=== PATIENT | female | born 1940 | race Caucasian/White ===

== ENCOUNTER 2024-03-09 10:33 | Outpatient (AMB) | payer MEDICARE, OTHER, SELFPAY ==
--- NOTE | 2024-03-09 10:37 | A.OFFPC_ITS ---
Vital Signs 03/09/24 10:41 Height 5 ft Weight 117 lb BMI 22.8 BP 142/60 H Blood Pressure Location Lt brachial Position Sitting Respiration 13 Pulse 88 Pulse Source Pulse Oximeter Pulse Oximetry (%) 99 Oxygen Delivery Method Room Air Intake Visit Reasons: [facility] from [facility] Intake Note: Patient is here to establish care with [facility]. Fibre Composite Technician Required: No Accompanied by: Self / Same As Patient Allergies sulfamethoxazole [From Bactrim] Allergy (Severe, Verified 03/09/24 10:58) Agitated trimethoprim [From Bactrim] Allergy (Severe, Verified 03/09/24 10:58) Agitated Medication List - Last Reconciled 03/09/24 by Magdalena Bryant MD ascorbate calcium (vitamin C) 500 mg PO DAILY aspirin 325 mg PO BID calcium carbonate-vitamin D3 600 mg-10 mcg (400 unit) 1 tab PO BID hydrochlorothiazide 12.5 mg PO DAILY lisinopril 40 mg PO DAILY nifedipine ER 30 mg PO DAILY Tobacco use date assessed: 03/09/24 Fall risk assessment: 2 + Falls in past year Last assessed Fall Risk: 03/09/24 Dental Screening Dental Screen Date: 03/09/24 Did you have a dental visit in the last 12 months?: Yes Did you have a dental problem in the last 6 months where you did not have access to dental care?: No Was dental information given to patient?: Patient has dentist HPI HPI Comments History of Present Illness Details The patient is a 83-year-old female past medical history of hypertension, diverticulitis, low back pain, hip pain presenting for follow-up In November was having pain in the right mid abdomen lateral abdomen. She had reassuring imaging thereafter. CV: On nifedipine 30 mg daily, lisinopril 40 mg daily, HCTZ 12.5 mg daily. Has been having some intermittent non exertional chest pain, like she cant get a deep breath. Attributes it to anxiety. Denies dizziness, headaches, shortness of breath MSK: Hip, sciatica, knees. Right hip OA, severe. She underwent right hip replacement with Dr. Heath. Continues to do well. Has chronic low back and right knee pain. Diverticulosis. Up-to-date with colonoscopy. Mild stable anemia. Total abdominal hysterectomy in 1964 ROS see hpi PHYSICAL EXAM: GENERAL: Alert and oriented x 3. NAD EYES: EOMI. Anicteric. HENT: Moist mucous membranes. No scleral icterus. No cervical lymphadenopathy. LUNGS: Clear to auscultation bilaterally. CARDIOVASCULAR: Regular rate and rhythm. No murmur. No JVD. ABDOMEN: Soft, non-tender +bs EXTREMITIES: No edema. Non-tender. SKIN: No rashes or lesions. Warm. NEUROLOGIC: No focal neurological deficits. CN II-XII grossly intact PSYCHIATRIC: Cooperative. Appropriate mood and affect [facility] Medical History (Updated 03/17/24 @ 11:06 by Magdalena Bryant MD) Broken arm Right femoral fracture Greater trochanteric bursitis of right hip Vitamin B12 deficiency Tubular adenoma of colon Sciatica Piriformis syndrome of right side Allergic rhinitis Hypertension Surgical History (Updated 03/09/24 @ 10:57 by America Dominique CMA) History of appendectomy History of total hip replacement Family History (Updated 03/09/24 @ 11:08 by America Dominique CMA) Mother CHF (congestive heart failure) Cancer of ovary Coronary artery disease Father Cancer of bladder Brother Heart attack Multiple myeloma Diabetes Lupus Pancreatic cancer Sister Heart attack Multiple myeloma Diabetes Lupus Pancreatic cancer Social History (Updated 03/09/24 @ 10:54 by America Dominique CMA) Household Members: Spouse Housing: Apartment Are you a primary care worker to a significant other at home: No Do you presently have visiting nurse or other home services: No 75 years or older and lives alone: No Alcohol intake: current Alcohol intake frequency: holidays/special occasions only Alcohol type: wine Patient Tobacco Use Status: Former Tobacco user e-Cigarette/Vaping Use: Never Used service: No Current occupational status: retired Current occupational exposures/hazards: No Cognitive needs: No Hearing needs: No Vision needs: No Questionnaire PHQ-9 Over the last 2 weeks, how often have you been bothered by any of the following problems? 1. Little interest or pleasure in doing things: not at all 2. Feeling down, depressed, or hopeless: not at all 3. Trouble falling or staying asleep, or sleeping too much: not at all 4. Feeling tired or having little energy: not at all 5. Poor appetite or overeating: not at all 6. Feeling bad about yourself - or that you are a failure or have let yourself or your family down: not at all 7. Trouble concentrating on things, such as reading the newspaper or watching television: not at all 8. Moving or speaking so slowly that other people could have noticed. Or the opposite - being so fidgety or restless that you have been moving around a lot more than usual: not at all 9. Thoughts that you would be better off or of hurting yourself in some way: not at all Total score: 0 Depression Screening Interpretation: Negative Depression Screening Done: Yes 73018 - PHQ-9 Billing: Yes Source: Developed by Drs. Jorge Perez, Vickie Puri, Kiran Malagon and colleagues, with an educational ruben from [employer]. Thrive Questionnaire Date Thrive assessed: 03/09/24 I am a: Patient What is your living situation today?: I have a steady place to live Within the past 12 months, did the food you bought not last and you didn't have the money to get more?: Never true Within the past 12 months, did you worry whether your food would run out before you got money to buy more?: Never true Do you have trouble paying for medicines?: No Do you have trouble getting transportation to medical appointments?: No Do you have trouble paying your heating and electricity bill?: No Do you have trouble taking care of your child, family member or friend?: No Do you have trouble with day-to-day activities such as bathing, preparing meals, shopping, managing finances, etc.?: No Are you currently unemployed and looking for a job?: No Are you interested in more education?: No Please select the resources that you would like help with: None Currently or been in a relationship where the following occur: No concerns reported THRIVE Score: 0 AUDIT C Alcohol Use Questionnaire (AUDIT-C) 1. How often do you have a drink containing alcohol?: Monthly or less 2. How many drinks containing alcohol do you have on a typical day when you are drinking?: 1 or 2 3. How often do you have six or more drinks on one occasion?: Never Total Score: 1 AMAN-7 AMB Questionnaire AMAN-7 Date AMAN - 7 assessed: 03/09/24 Feeling nervous, anxious, or on edge: 0 = Not at all Not being able to stop or control worryin = Not at all Worrying too much about different things: 0 = Not at all Trouble relaxin = Not at all Being so restless that it is hard to sit still: 0 = Not at all Becoming easily annoyed or irritable: 0 = Not at all Feeling afraid as if something awful might happen: 0 = Not at all Total AMAN-7 score (0-4 normal; 5-9 mild; 10-14 moderate; 15-21 severe): 0 Source: Developed by Drs. Jorge Perez, Vickie Puri, Kiran Malagon and colleagues, with an educational ruben from [employer]. AMAN-7 Assessment Billing AMAN-7 Assessment Tool: AMAN-7 Assessment 47886 Physical exam (Primary Care) Vital Signs: Last Vital Signs Pulse 88 03/09/24 10:41 Resp 13 03/09/24 10:41 BP 142/60 H 03/09/24 10:41 Pulse Ox 99 03/09/24 10:41 Oxygen Delivery Method Room Air 03/09/24 10:41 BMI result Body Mass Index 22.8 Tobacco/Smoking Status: Tobacco use Status Tobacco use date assessed 03/09/24 03/09/24 10:51 Patient Tobacco Use Status Former Tobacco user 03/09/24 10:54 e-Cigarette/Vaping Use Never Used 03/09/24 10:54 PHQ-9: PHQ-9 Score PHQ-9: Total score 0 03/17/24 11:06 Depression Screening Interpretation: Negative Thrive Assessment: Date of Thrive Assessment Date Thrive assessed 03/09/24 03/09/24 10:54 Currently or been in a relationship where the following occur: No concerns reported Assessment and Plan Assessment & Plan (1) Hypertension: Code(s): I10 - Essential (primary) hypertension Qualifiers: Hypertension type: primary hypertension Qualified Code(s): I10 - Essential (primary) hypertension Plan: Stable on current medications. Continue without changes Low sodium diet. Stay active and continue healthy diet (2) Chest pain: Code(s): R07.9 - Chest pain, unspecified Qualifiers: Chest pain type: other chest pain Qualified Code(s): R07.89 - Other chest pain Plan: reassuring ekg (3) Piriformis syndrome of right side: Code(s): G57.01 - Lesion of sciatic nerve, right lower limb Orders: Orders Complete Blood Count Auto Diff 03/09/24 E53.8 - Deficiency of other specified B group vitamins, I10 - Essential (primary) hypertension, D64.9 - Anemia, unspecified, Z13.220 - Encounter for screening for lipoid disorders Comprehensive Met. Panel 03/09/24 E53.8 - Deficiency of other specified B group vitamins, I10 - Essential (primary) hypertension, D64.9 - Anemia, unspecified, Z13.220 - Encounter for screening for lipoid disorders AMB EKG-In Office 03/09/24 R06.02 - Shortness of breath Lipid Panel 03/09/24 E53.8 - Deficiency of other specified B group vitamins, I10 - Essential (primary) hypertension, D64.9 - Anemia, unspecified, Z13.220 - Encounter for screening for lipoid disorders Medications: New nifedipine ER 30 mg PO DAILY 90 tabs 3RF 90 days hydrochlorothiazide 12.5 mg PO DAILY 90 tabs 3RF 90 days lisinopril 40 mg PO DAILY 90 tabs 3RF Coding Level of Care Code Est Pt Level 4 (61587) Complex EM visit Add On G2211 Diagnoses Primary hypertension I10 Hypertension type: primary hypertension Other chest pain R07.89 Chest pain type: other chest pain Piriformis syndrome of right side G57.01 Additional Codes AMAN-7 Assessment Billing - AMAN-7 Assessment Tool: AMAN-7 Assessment [id number] ([id number])
[2024-03-09 10:41] VITALS: BP 142/60; PULSE 88; RESP 13; O2SAT 99; BMI 22.8
== END 2024-03-09 11:41 | disposition home or self-care (01) ==
PROVIDERS: PCP Internal Medicine; Visit Provider Internal Medicine
DX: I10 Essential (primary) hypertension (principal); R07.89 Other chest pain; G57.01 Lesion of sciatic nerve, right lower limb
CPT/HCPCS: 99214; G2211

== ENCOUNTER 2024-07-06 13:38 | Outpatient (AMB) | payer MEDICARE, OTHER, SELFPAY ==
--- NOTE | 2024-07-06 13:52 | A.OFFPC_ITS ---
Vital Signs 07/06/24 13:53 Height 5 ft Weight 121 lb 2 oz BMI 23.7 BP 132/58 L Blood Pressure Location Rt brachial Position Sitting Pulse 80 Pulse Source Pulse Oximeter Temp 98.1 F Temp Source Oral Pulse Oximetry (%) 98 Oxygen Delivery Method Room Air Intake Visit Reasons: Possible Sinus infection Intake Note: Sinus pressure, cough. Sxs about 9 days. Radiation Protection Engineer Required: No Allergies sulfamethoxazole [From Bactrim] Allergy (Severe, Verified 07/06/24 13:53) Agitated trimethoprim [From Bactrim] Allergy (Severe, Verified 07/06/24 13:53) Agitated Tobacco use date assessed: 03/09/24 Dental Screening Dental Screen Date: 03/09/24 HPI HPI Comments History of Present Illness Details The patient is a 83-year-old female past med ical history of hypertension, diverticulitis, low back pain, hip pain presenting for sinus congestion She reports sinus congestion, headache, teeth pain low grade temps for the past 10 days. Has tried OTC medication without relief CV: On nifedipine 30 mg daily, lisinopril 40 mg daily, HCTZ 12.5 mg daily. Has been having some intermittent non exertional chest pain, like she cant get a deep breath. Attributes it to anxiety. Denies dizziness, headaches, shortness of breath MSK: Hip, sciatica, knees. Right hip OA, severe. She underwent right hip replacement with Dr. Heath. Continues to do well. Has chronic low back and right knee pain. Diverticulosis. Up-to-date with colonoscopy. Mild stable anemia. Total abdominal hysterectomy in 1965 ROS see hpi PHYSICAL EXAM: GENERAL: Alert and oriented x 3. NAD EYES: EOMI. Anicteric. HENT: boggy nasal mucosa. maxillary sinuses ttp, erythema without exudate of the oropharynx LUNGS: Clear to auscultation bilaterally. CARDIOVASCULAR: Regular rate and rhythm. No murmur. No JVD. ABDOMEN: Soft, non-tender +bs EXTREMITIES: No edema. Non-tender. SKIN: No rashes or lesions. Warm. NEUROLOGIC: No focal neurological deficits. CN II-XII grossly intact PSYCHIATRIC: Cooperative. Appropriate mood and affect [facility] Medical History (Updated 07/06/24 @ 14:06 by Magdalena Bryant MD) Broken arm Right femoral fracture Greater trochanteric bursitis of right hip Vitamin B12 deficiency Tubular adenoma of colon Sciatica Piriformis syndrome of right side Allergic rhinitis Hypertension Surgical History (Updated 03/09/24 @ 10:57 by America Dominique CMA) History of appendectomy History of total hip replacement Family History (Updated 03/09/24 @ 11:08 by America Dominique CMA) Mother CHF (congestive heart failure) Cancer of ovary Coronary artery disease Father Cancer of bladder Brother Heart attack Multiple myeloma Diabetes Lupus Pancreatic cancer Sister Heart attack Multiple myeloma Diabetes Lupus Pancreatic cancer Social History (Updated 03/09/24 @ 10:54 by America Dominique CMA) Household Members: Spouse Housing: Apartment Are you a primary rn progressive care unit to a significant other at home: No Do you presently have visiting nurse or other home services: No 75 years or older and lives alone: No Alcohol intake: current Alcohol intake frequency: holidays/special occasions only Alcohol type: wine Patient Tobacco Use Status: Former Tobacco user e-Cigarette/Vaping Use: Never Used service: No Current occupational status: retired Current occupational exposures/hazards: No Cognitive needs: No Hearing needs: No Vision needs: No Questionnaire PHQ-9 Over the last 2 weeks, how often have you been bothered by any of the following problems? 1. Little interest or pleasure in doing things: not at all 2. Feeling down, depressed, or hopeless: not at all Source: Developed by Drs. Jorge Perez, Vickie Puri, Kiran Malagon and colleagues, with an educational ruben from [employer]. Thrive Questionnaire Date Thrive assessed: 07/03/24 I am a: Patient What is your living situation today?: I have a steady place to live Within the past 12 months, did the food you bought not last and you didn't have the money to get more?: Never true Within the past 12 months, did you worry whether your food would run out before you got money to buy more?: Never true Do you have trouble paying for medicines?: No Do you have trouble getting transportation to medical appointments?: No Do you have trouble paying your heating and electricity bill?: No Do you have trouble taking care of your child, family member or friend?: No Do you have trouble with day-to-day activities such as bathing, preparing meals, shopping, managing finances, etc.?: No Are you currently unemployed and looking for a job?: No Are you interested in more education?: No Please select the resources that you would like help with: None THRIVE Score: 0 AUDIT C Alcohol Use Questionnaire (AUDIT-C) 1. How often do you have a drink containing alcohol?: Monthly or less 2. How many drinks containing alcohol do you have on a typical day when you are drinking?: 1 or 2 3. How often do you have six or more drinks on one occasion?: Never Total Score: 1 AMAN-7 AMB Questionnaire AMAN-7 Date AMAN - 7 assessed: 03/09/24 Feeling nervous, anxious, or on edge: 0 = Not at all Not being able to stop or control worryin = Not at all Worrying too much about different things: 1 = Several days Trouble relaxin = Not at all Being so restless that it is hard to sit still: 0 = Not at all Becoming easily annoyed or irritable: 1 = Several days Feeling afraid as if something awful might happen: 0 = Not at all Total AMAN-7 score (0-4 normal; 5-9 mild; 10-14 moderate; 15-21 severe): 2 Source: Developed by Drs. Jorge Perez, Vickie Puri, Kiran Malagon and colleagues, with an educational ruben from [employer]. Physical exam (Primary Care) Vital Signs: Last Vital Signs Temp 98.1 F 07/06/24 13:53 Pulse 80 07/06/24 13:53 BP 132/58 L 07/06/24 13:53 Pulse Ox 98 07/06/24 13:53 Oxygen Delivery Method Room Air 07/06/24 13:53 BMI result Body Mass Index 23.7 Tobacco/Smoking Status: Tobacco use Status Tobacco use date assessed 03/09/24 07/06/24 13:57 Patient Tobacco Use Status Former Tobacco user 07/06/24 13:57 e-Cigarette/Vaping Use Never Used 07/06/24 13:57 Thrive Assessment: Date of Thrive Assessment Date Thrive assessed 07/03/24 07/06/24 13:57 Coding Level of Care Code Est Pt Level 4 (19235) Diagnoses Acute maxillary sinusitis, recurrence not specified J01.00 Chronicity: acute Recurrence: not specified as recurrent Sinusitis location: maxillary Assessment & Plan Assessment & Plan (1) Sinusitis: Code(s): J32.9 - Chronic sinusitis, unspecified Category: Medical Qualifiers: Chronicity: acute Recurrence: not specified as recurrent Sinusitis location: maxillary Qualified Code(s): J01.00 - Acute maxillary sinusitis, unspecified Plan: Doxycycline x 10 days Continue nasal spray/OTC as needed Medications: New doxycycline monohydrate 100 mg PO BID 20 tabs 0RF 10 days doxycycline monohydrate 100 mg PO BID 20 tabs 0RF 10 days
[2024-07-06 13:53] VITALS: BP 132/58; PULSE 80; TEMP 36.7; O2SAT 98; BMI 23.7
== END 2024-07-06 14:12 | disposition home or self-care (01) ==
PROVIDERS: PCP Internal Medicine; Visit Provider Internal Medicine
DX: J01.00 Acute maxillary sinusitis, unspecified (principal)

== ENCOUNTER → 2024-07-06 13:38 | Outpatient (BNVA) | payer MEDICARE, OTHER, SELFPAY | PROVIDERS: PCP Internal Medicine; Visit Provider Internal Medicine | DX: J01.00 Acute maxillary sinusitis, unspecified (principal) | CPT/HCPCS: 99212 ==

== ENCOUNTER 2024-08-18 15:57 | Outpatient (AMB) | payer MEDICARE, OTHER, SELFPAY ==
--- NOTE | 2024-08-18 15:58 | MHC.PC.OV ---
Vital Signs 08/18/24 16:02 Height 5 ft Weight 120 lb BMI 23.4 BP 118/66 Blood Pressure Location Rt brachial Position Sitting Respiration 12 Pulse 71 Pulse Source Pulse Oximeter Pulse Oximetry (%) 98 Oxygen Delivery Method Room Air Intake Visit Reasons: CPE Intake Note: annual cpe Medicaid Service Coordinator Required: No Allergies sulfamethoxazole [From Bactrim] Allergy (Severe, Verified 08/18/24 15:59) Agitated trimethoprim [From Bactrim] Allergy (Severe, Verified 08/18/24 15:59) Agitated Tobacco use date assessed: 03/09/24 Dental Screening Dental Screen Date: 03/09/24 HPI HPI Comments History of Present Illness Details The patient is a 83-year-old female past medical history of hypertension, diverticulitis, low back pain, hip pain presenting for AWV/CPE CV: On nifedipine 30 mg daily, lisinopril 40 mg daily, HCTZ 12.5 mg daily. Wondering if she can stop nifedipine. BP is well controlled. Has been having some intermittent non exertional chest pain, like she cant get a deep breath. Attributes it to anxiety. Denies dizziness, headaches, shortness of breath MSK: Hip, sciatica, knees. Right hip OA, severe. She underwent right hip replacement with Dr. Heath. Continues to do well. Has chronic low back and right knee pain. Sees [facility] prn. Recently seen for knee injection which did provide some relief Diverticulosis: Up-to-date with colonoscopy-no need for further without issue. Mild stable anemia. Stopped mammos Total abdominal hysterectomy in 1964 HRA reviewed. Care team reviewed-Sees optho, dental, [facility] Negative fall risk. Depression (-). Independent ADLS. 3/3 ROS see hpi PHYSICAL EXAM: GENERAL: Alert and oriented x 3. NAD EYES: EOMI. Anicteric. HEENT: PERR, moist mucus membranes LUNGS: Clear to auscultation bilaterally. CARDIOVASCULAR: Regular rate and rhythm. No murmur. No JVD. ABDOMEN: Soft, non-tender +bs EXTREMITIES: No edema. Non-tender. SKIN: No rashes or lesions. Warm. NEUROLOGIC: No focal neurological deficits. CN II-XII grossly intact PSYCHIATRIC: Cooperative. Appropriate mood and affect [facility] Medical History Broken arm Right femoral fracture Greater trochanteric bursitis of right hip Vitamin B12 deficiency Tubular adenoma of colon Sciatica Piriformis syndrome of right side Allergic rhinitis Hypertension Surgical History History of appendectomy History of total hip replacement Family History Mother CHF (congestive heart failure) Cancer of ovary Coronary artery disease Father Cancer of bladder Brother Heart attack Multiple myeloma Diabetes Lupus Pancreatic cancer Sister Heart attack Multiple myeloma Diabetes Lupus Pancreatic cancer Social History Household Members: Spouse Housing: Apartment Are you a primary aged or disabled carer to a significant other at home: No Do you presently have visiting nurse or other home services: No 75 years or older and lives alone: No Alcohol intake: current Alcohol intake frequency: holidays/special occasions only Alcohol type: wine Patient Tobacco Use Status: Former Tobacco user e-Cigarette/Vaping Use: Never Used service: No Current occupational status: retired Current occupational exposures/hazards: No Cognitive needs: No Hearing needs: No Vision needs: No Questionnaire PHQ-9 Over the last 2 weeks, how often have you been bothered by any of the following problems? 1. Little interest or pleasure in doing things: not at all 2. Feeling down, depressed, or hopeless: not at all 3. Trouble falling or staying asleep, or sleeping too much: several days 4. Feeling tired or having little energy: several days 5. Poor appetite or overeating: not at all 6. Feeling bad about yourself - or that you are a failure or have let yourself or your family down: not at all 7. Trouble concentrating on things, such as reading the newspaper or watching television: several days 8. Moving or speaking so slowly that other people could have noticed. Or the opposite - being so fidgety or restless that you have been moving around a lot more than usual: not at all 9. Thoughts that you would be better off or of hurting yourself in some way: not at all Total score: 3 Depression Screening Interpretation: Negative Depression Screening Done: Yes 46745 - PHQ-9 Billing: Yes Source: Developed by Drs. Jorge Perez, Vickie Puri, Kiran Malagon and colleagues, with an educational ruben from [employer]. Thrive Questionnaire Date Thrive assessed: 08/18/24 I am a: Patient What is your living situation today?: I have a steady place to live Within the past 12 months, did the food you bought not last and you didn't have the money to get more?: Never true Within the past 12 months, did you worry whether your food would run out before you got money to buy more?: Never true Do you have trouble paying for medicines?: No Do you have trouble getting transportation to medical appointments?: No Do you have trouble paying your heating and electricity bill?: No Do you have trouble taking care of your child, family member or friend?: No Do you have trouble with day-to-day activities such as bathing, preparing meals, shopping, managing finances, etc.?: No Are you currently unemployed and looking for a job?: No Are you interested in more education?: No Please select the resources that you would like help with: None Currently or been in a relationship where the following occur: No concerns reported THRIVE Score: 0 AUDIT C Alcohol Use Questionnaire (AUDIT-C) 1. How often do you have a drink containing alcohol?: Monthly or less 2. How many drinks containing alcohol do you have on a typical day when you are drinking?: 1 or 2 3. How often do you have six or more drinks on one occasion?: Never Total Score: 1 AMAN-7 AMB Questionnaire AMAN-7 Date AMAN - 7 assessed: 08/18/24 Feeling nervous, anxious, or on edge: 0 = Not at all Not being able to stop or control worryin = Not at all Worrying too much about different things: 0 = Not at all Trouble relaxin = Not at all Being so restless that it is hard to sit still: 0 = Not at all Becoming easily annoyed or irritable: 0 = Not at all Feeling afraid as if something awful might happen: 0 = Not at all Total AMAN-7 score (0-4 normal; 5-9 mild; 10-14 moderate; 15-21 severe): 0 Source: Developed by Vickie Pina Kurt Kroenke and colleagues, with an educational ruben from [employer]. AMAN-7 Assessment Billing AMAN-7 Assessment Tool: AMAN-7 Assessment 14548 Physical exam (Primary Care) Vital Signs: Last Vital Signs Pulse 71 08/18/24 16:02 Resp 12 08/18/24 16:02 BP 118/66 08/18/24 16:02 Pulse Ox 98 08/18/24 16:02 Oxygen Delivery Method Room Air 08/18/24 16:02 BMI result Body Mass Index 23.4 Tobacco/Smoking Status: Tobacco use Status Tobacco use date assessed 03/09/24 08/18/24 16:02 Patient Tobacco Use Status Former Tobacco user 08/18/24 16:02 e-Cigarette/Vaping Use Never Used 08/18/24 16:02 PHQ-9: PHQ-9 Score PHQ-9: Total score 3 08/18/24 16:19 Depression Screening Interpretation: Negative Thrive Assessment: Date of Thrive Assessment Date Thrive assessed 08/18/24 08/18/24 16:02 Currently or been in a relationship where the following occur: No concerns reported Coding Level of Care Code Est Pt Level 4 (54915) Est Pt Prev Care >65y(93130) Diagnoses Physical exam Z00.00 Primary hypertension I10 Hypertension type: primary hypertension Additional Codes AAMN-7 Assessment Billing - AMAN-7 Assessment Tool: AMAN-7 Assessment 14725 ([id number]) PHQ-9 - 15530 - PHQ-9 Billing: Yes ([id number]) Assessment & Plan Assessment & Plan (1) Physical exam: Code(s): Z00.00 - Encounter for general adult medical examination without abnormal findings Category: Medical Plan: AWV/CPE see [facility] Preventive care UTD (2) Hypertension: Code(s): I10 - Essential (primary) hypertension Category: Medical Qualifiers: Hypertension type: primary hypertension Qualified Code(s): I10 - Essential (primary) hypertension Plan: stable. She may trial off nifedipine Orders: Orders Comprehensive Met. Panel 08/18/24 I10 - Essential (primary) hypertension, R07.89 - Other chest pain, R53.83 - Other fatigue, Z00.00 - Encounter for general adult medical examination without abnormal findings TSH reflex Free T4 08/18/24 I10 - Essential (primary) hypertension, R07.89 - Other chest pain, R53.83 - Other fatigue, Z00.00 - Encounter for general adult medical examination without abnormal findings Vitamin B12 and Folate 08/18/24 I10 - Essential (primary) hypertension, R07.89 - Other chest pain, R53.83 - Other fatigue, Z00.00 - Encounter for general adult medical examination without abnormal findings IRON PROFILE 08/18/24 I10 - Essential (primary) hypertension, R07.89 - Other chest pain, R53.83 - Other fatigue, Z00.00 - Encounter for general adult medical examination without abnormal findings Complete Blood Count Auto Diff 08/18/24 I10 - Essential (primary) hypertension, R07.89 - Other chest pain, R53.83 - Other fatigue, Z00.00 - Encounter for general adult medical examination without abnormal findings Lipid Panel 08/18/24 I10 - Essential (primary) hypertension, R07.89 - Other chest pain, R53.83 - Other fatigue, Z00.00 - Encounter for general adult medical examination without abnormal findings Medications: Discontinued doxycycline monohydrate Discontinued Reason: Doctor's Order 100 mg PO BID 10 days 20 tabs 0RF
[2024-08-18 16:02] VITALS: BP 118/66; PULSE 71; RESP 12; O2SAT 98; BMI 23.4
== END 2024-08-18 16:31 | disposition home or self-care (01) ==
PROVIDERS: PCP Internal Medicine; Visit Provider Internal Medicine
DX: Z00.00 Encounter for general adult medical examination without abnormal findings (principal); I10 Essential (primary) hypertension

== ENCOUNTER → 2024-08-18 15:57 | Outpatient (BNVA) | payer MEDICARE, OTHER, SELFPAY | PROVIDERS: PCP Internal Medicine; Visit Provider Internal Medicine | DX: Z00.00 Encounter for general adult medical examination without abnormal findings (principal); I10 Essential (primary) hypertension; K57.92 Diverticulitis of intestine, part unspecified, without perforation or abscess without bleeding; M54.50 Low back pain, unspecified; M16.11 Unilateral primary osteoarthritis, right hip; R53.83 Other fatigue; R07.89 Other chest pain | CPT/HCPCS: 96127; 99212; 99397 ==

== ENCOUNTER 2024-08-19 13:27 | Outpatient (REF) | payer MEDICARE, OTHER, SELFPAY ==
[2024-08-19 17:34] LABS: MANUAL DIFF FLAG NO
[2024-08-19 17:58] LABS: Basophils Absolute Auto 0.1 X10*3/uL (0.0-0.2); Basophils Percent Auto 0.7 % (0-2); Eosinophils Absolute Auto 0.1 X10*3/uL (0.0-0.4); Eosinophils Percent Auto 1.7 % (0-4); Hematocrit 33.6 % (37.0-47.0); Hemoglobin 11.3 g/dl (12.0-16.0); Imm Gran Abs Auto 0.03 X10*3/uL (0.00-0.03); Imm Gran Pct Auto 0.4 % (0.0-0.4); Lymphocytes Absolute Auto 1.4 X10*3/uL (1.2-4.9); Lymphocytes Percent Auto 16.3 % (20-40); Mean Corpuscular HGB Conc 33.6 g/dl (31.0-35.0); Mean Corpuscular Volume 86.2 fL (80.0-98.0); Mean Platelet Volume 9.3 fL (9.4-12.3); Monocytes Absolute Auto 0.5 X10*3/uL (0.1-1.2); Monocytes Percent Auto 6.5 % (2-11); Neutrophils Absolute Auto 6.2 x10*3/uL (2.0-8.3); Neutrophils Percent Auto 74.4 % (45-73); Platelet Count 281 X10*3/uL (160-400); Red Cell Distribution Width 13.9 % (11.0-16.0); White Blood Count 8.3 X10*3/uL (4.8-10.8)
[2024-08-19 18:26] LABS: Alanine Aminotransferase 19 U/L (0-31); Albumin Level 4.1 g/dL (3.5-5.0); Alkaline Phosphatase 84 U/L (39-117); Anion Gap 14 (12-20); Aspartate Amino Transferase 35 U/L (5-31); Bilirubin Total 0.5 mg/dL (0.0-1.0); Blood Urea Nitrogen 25 mg/dL (9-16); Calcium 9.7 mg/dL (8.4-10.2); Carbon Dioxide 28 mmol/L (22-29); Chloride 99 mmol/L (96-108); Cholesterol 209 mg/dL (<200); Estimated Glomerular Filt Rate > 60; Glucose Random 102 mg/dL (60-115); HDL Cholesterol 63 mg/dL (>40); Iron 62 mcg/dL (30-160); LDL Cholesterol Calculated 114 mg/dL (<100); Percent Iron Saturation 22 % (15-50); Potassium 3.7 mmol/L (3.3-5.1); Sodium 137 mmol/L (135-145); Total Iron Binding Capacity 285 mcg/dL (228-428); Total Protein 6.5 g/dL (6.5-8.0); Triglycerides 161 mg/dL (<150); Unsaturated Iron Binding 223 ug/dL
[2024-08-19 18:42] LABS: Folate 12.2 ng/mL (> or = 4.0); Vitamin B12 1243 pg/mL (200-900)
== END 2024-08-19 13:28 | disposition home or self-care (01) ==
LOC: HO.WFDLDS 13:27
PROVIDERS: Visit Provider Internal Medicine
DX: Z00.00 Encounter for general adult medical examination without abnormal findings (principal); E53.8 Deficiency of other specified B group vitamins; I10 Essential (primary) hypertension; D64.9 Anemia, unspecified; Z13.220 Encounter for screening for lipoid disorders; R53.83 Other fatigue; R07.89 Other chest pain; R07.9 Chest pain, unspecified
CPT/HCPCS: 36415; 80053; 80061; 82607; 82746; 83540; 84443; 85025

== ENCOUNTER → 2024-09-17 07:58 | Outpatient (BNV) | payer MEDICARE, OTHER, SELFPAY | PROVIDERS: Visit Provider Internal Medicine Cardiovascular Disease | DX: I35.1 Nonrheumatic aortic (valve) insufficiency (principal); I36.1 Nonrheumatic tricuspid (valve) insufficiency | CPT/HCPCS: 93306 ==

== ENCOUNTER 2024-09-28 10:08 | Outpatient (AMB) | payer MEDICARE, OTHER, SELFPAY ==
--- NOTE | 2024-09-28 10:12 | MHC.PC.OV ---
Vital Signs 09/28/24 10:13 Height 5 ft Weight 118 lb 6 oz BMI 23.1 BP 150/60 H Blood Pressure Location Lt brachial Position Sitting Respiration 14 Pulse 68 Pulse Source Pulse Oximeter Temp 97.5 F Temp Source Oral Pulse Oximetry (%) 98 Oxygen Delivery Method Room Air Intake Visit Reasons: results of test/pain under ribs Intake Note: lab review and pain under ribs Allergies sulfamethoxazole [From Bactrim] Allergy (Severe, Verified 09/28/24 10:13) Agitated trimethoprim [From Bactrim] Allergy (Severe, Verified 09/28/24 10:13) Agitated Tobacco use date assessed: 03/09/24 Dental Screening Dental Screen Date: 03/09/24 HPI HPI Comments History of Present Illness Details The patient is a 83-year-old female past medical history of hypertension, diverticulitis, low back pain, hip pain presenting for right sided chest pain Intermittently patient has sternal and right rib pain. Worse with activity. Non exertional. No injury. Recent echo with stable AR. Worse after echo exam. Hurts with palpation. Has had reassuring EKG. CV: On nifedipine 30 mg daily, lisinopril 40 mg daily, HCTZ 12.5 mg daily. MSK: Hip, sciatica, knees. Right hip OA, severe. She underwent right hip replacement with Dr. Heath. Continues to do well. Has chronic low back and right knee pain. Sees [facility] prn. Recently seen for knee injection which did provide some relief Diverticulosis: Up-to-date with colonoscopy-no need for further without issue. Mild stable anemia. Stopped mammos Total abdominal hysterectomy in 1964 ROS see hpi PHYSICAL EXAM: GENERAL: Alert and oriented x 3. NAD EYES: EOMI. Anicteric. HEENT: PERR, moist mucus membranes LUNGS: Clear to auscultation bilaterally. mildy tender lower sternum and right medial ribs. CARDIOVASCULAR: Regular rate and rhythm. No murmur. No JVD. ABDOMEN: Soft, non-tender +bs EXTREMITIES: No edema. Non-tender. SKIN: No rashes or lesions. Warm. NEUROLOGIC: No focal neurological deficits. CN II-XII grossly intact PSYCHIATRIC: Cooperative. Appropriate mood and affect [facility]END[facility] S[facility] TO [facility] Medical History Broken arm Right femoral fracture Greater trochanteric bursitis of right hip Vitamin B12 deficiency Tubular adenoma of colon Sciatica Piriformis syndrome of right side Allergic rhinitis Hypertension Surgical History History of appendectomy History of total hip replacement Family History Mother CHF (congestive heart failure) Cancer of ovary Coronary artery disease Father Cancer of bladder Brother Heart attack Multiple myeloma Diabetes Lupus Pancreatic cancer Sister Heart attack Multiple myeloma Diabetes Lupus Pancreatic cancer Social History Household Members: Spouse Housing: Apartment Are you a primary care nurse rn to a significant other at home: No Do you presently have visiting nurse or other home services: No 75 years or older and lives alone: No Alcohol intake: current Alcohol intake frequency: holidays/special occasions only Alcohol type: wine Patient Tobacco Use Status: Former Tobacco user e-Cigarette/Vaping Use: Never Used service: No Current occupational status: retired Current occupational exposures/hazards: No Cognitive needs: No Hearing needs: No Vision needs: No Questionnaire Thrive Questionnaire Date Thrive assessed: 08/15/24 I am a: Patient What is your living situation today?: I have a steady place to live Within the past 12 months, did the food you bought not last and you didn't have the money to get more?: Never true Within the past 12 months, did you worry whether your food would run out before you got money to buy more?: Never true Do you have trouble paying for medicines?: No Do you have trouble getting transportation to medical appointments?: No Do you have trouble paying your heating and electricity bill?: No Do you have trouble taking care of your child, family member or friend?: No Do you have trouble with day-to-day activities such as bathing, preparing meals, shopping, managing finances, etc.?: No Are you currently unemployed and looking for a job?: No Are you interested in more education?: No Please select the resources that you would like help with: None Currently or been in a relationship where the following occur: No concerns reported THRIVE Score: 0 AMAN-7 AMB Questionnaire AMAN-7 Date AMAN - 7 assessed: 08/18/24 Source: Developed by Drs. Jorge Perez, Vickie Puri, Kiran Malagon and colleagues, with an educational ruben from [employer]. Physical exam (Primary Care) Vital Signs: Last Vital Signs Temp 97.5 F 09/28/24 10:13 Pulse 68 09/28/24 10:13 Resp 14 09/28/24 10:13 BP 150/60 H 09/28/24 10:13 Pulse Ox 98 09/28/24 10:13 Oxygen Delivery Method Room Air 09/28/24 10:13 BMI result Body Mass Index 23.1 Tobacco/Smoking Status: Tobacco use Status Tobacco use date assessed 03/09/24 09/28/24 10:20 Patient Tobacco Use Status Former Tobacco user 09/28/24 10:20 e-Cigarette/Vaping Use Never Used 09/28/24 10:20 Thrive Assessment: Date of Thrive Assessment Date Thrive assessed 08/15/24 09/28/24 10:20 Currently or been in a relationship where the following occur: No concerns reported Coding Level of Care Code Est Pt Level 4 (92235) Diagnoses Other chest pain R07.89 Chest pain type: other chest pain Assessment & Plan Assessment & Plan (1) Chest pain: Code(s): R07.9 - Chest pain, unspecified Category: Medical Qualifiers: Chest pain type: other chest pain Qualified Code(s): R07.89 - Other chest pain Plan: Discussed likely costochondritis Offered imaging to ruin out fracture-patient decline Offered cardiac stress testing. Patient declines at this time
[2024-09-28 10:13] VITALS: BP 150/60; PULSE 68; RESP 14; TEMP 36.4; O2SAT 98; BMI 23.1
== END 2024-09-28 15:03 | disposition home or self-care (01) ==
PROVIDERS: Visit Provider Internal Medicine
DX: R07.89 Other chest pain (principal)

== ENCOUNTER → 2024-09-28 10:08 | Outpatient (BNVA) | payer MEDICARE, OTHER, SELFPAY | PROVIDERS: Visit Provider Internal Medicine | DX: R07.89 Other chest pain (principal); I10 Essential (primary) hypertension; M54.50 Low back pain, unspecified; M25.551 Pain in right hip; M25.561 Pain in right knee; Z96.641 Presence of right artificial hip joint | CPT/HCPCS: 99212 ==

== ENCOUNTER 2025-03-15 08:50 | Outpatient (AMB) | payer MEDICARE, OTHER, SELFPAY ==
--- NOTE | 2025-03-15 09:06 | MHC.PC.OV ---
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: No Allergies sulfamethoxazole (From Bactrim) Allergy (Severe, Verified 03/15/25 09:09) Agitated trimethoprim (From Bactrim) Allergy (Severe, Verified 03/15/25 09:09) Agitated Tobacco use date assessed: 03/15/25 Fall risk assessment: 1 Fall in past year Last assessed Fall Risk: 03/15/25 Dental Screening Dental Screen Date: 03/15/25 Did you have a dental visit in the last 12 months?: Yes Did you have a dental problem in the last 6 months where you did not have access to dental care?: No Was dental information given to patient?: Patient has dentist HPI HPI Comments History of Present Illness Details The patient is a 83-year-old female past medical history of hypertension, diverticulitis, low back pain, hip pain presenting for right sided chest pain CV: On nifedipine 30 mg daily, lisinopril 40 mg daily, HCTZ 12.5 mg daily. History of AR-stable on last echo. Costochondritis has improved. MSK: Hip, sciatica, knees. Right hip OA-She underwent right hip replacement with Dr. Heath. Continues to do well. Has chronic low back and right knee pain. Sees [facility] prn. Has had steroid knee injections is getting scheduled for hyalgan or similar. She has increased right SI pain -referral to pain management today Diverticulosis: Up-to-date with colonoscopy-no need for further without issue. Mild stable anemia. Stopped mammos Total abdominal hysterectomy in 1964 ROS see hpi PHYSICAL EXAM: GENERAL: Alert and oriented x 3. NAD EYES: EOMI. Anicteric. HEENT: PERR, moist mucus membranes LUNGS: Clear to auscultation bilaterally. CARDIOVASCULAR: Regular rate and rhythm. soft murmur. No JVD. ABDOMEN: Soft, non-tender +bs MSK: Tender right SI to palpation EXTREMITIES: No edema. Non-tender. SKIN: No rashes or lesions. Warm. NEUROLOGIC: No focal neurological deficits. CN II-XII grossly intact PSYCHIATRIC: Cooperative. Appropriate mood and affect [facility] Medical History Broken arm Right femoral fracture Greater trochanteric bursitis of right hip Vitamin B12 deficiency Tubular adenoma of colon Sciatica Piriformis syndrome of right side Allergic rhinitis Hypertension Surgical History History of appendectomy History of total hip replacement Family History Mother CHF (congestive heart failure) Cancer of ovary Coronary artery disease Father Cancer of bladder Brother Heart attack Multiple myeloma Diabetes Lupus Pancreatic cancer Sister Heart attack Multiple myeloma Diabetes Lupus Pancreatic cancer Social History Household Members: Spouse Housing: Apartment Are you a primary home child care provider to a significant other at home: No Do you presently have visiting nurse or other home services: No 75 years or older and lives alone: No Alcohol intake: current Alcohol intake frequency: holidays/special occasions only Alcohol type: wine Patient Tobacco Use Status: Former Tobacco user e-Cigarette/Vaping Use: Never Used service: No Current occupational status: retired Current occupational exposures/hazards: No Cognitive needs: No Hearing needs: No Vision needs: No Questionnaire Thrive Questionnaire Date Thrive assessed: 08/15/24 I am a: Patient What is your living situation today?: I have a steady place to live Within the past 12 months, did the food you bought not last and you didn't have the money to get more?: Never true Within the past 12 months, did you worry whether your food would run out before you got money to buy more?: Never true Do you have trouble paying for medicines?: No Do you have trouble getting transportation to medical appointments?: No Do you have trouble paying your heating and electricity bill?: No Do you have trouble taking care of your child, family member or friend?: No Do you have trouble with day-to-day activities such as bathing, preparing meals, shopping, managing finances, etc.?: No Are you currently unemployed and looking for a job?: No Are you interested in more education?: No Please select the resources that you would like help with: None Currently or been in a relationship where the following occur: No concerns reported THRIVE Score: 0 AMAN-7 AMB Questionnaire AMAN-7 Date AMAN - 7 assessed: 08/18/24 Source: Developed by Drs. Jorge Perez, Vickie Puri, Kiran Malagon and colleagues, with an educational ruben from [employer]. Physical exam (Primary Care) Vital Signs: Last Vital Signs Temp 98.1 F 03/15/25 09:10 Pulse 71 03/15/25 09:10 Resp 12 03/15/25 09:10 BP 114/56 L 03/15/25 09:10 Pulse Ox 96 03/15/25 09:10 Oxygen Delivery Method Room Air 03/15/25 09:10 BMI result Body Mass Index 22.7 Tobacco/Smoking Status: Tobacco use Status Tobacco use date assessed 03/15/25 03/15/25 09:14 Patient Tobacco Use Status Former Tobacco user 03/15/25 09:07 e-Cigarette/Vaping Use Never Used 03/15/25 09:07 Thrive Assessment: Date of Thrive Assessment Date Thrive assessed 08/15/24 03/15/25 09:07 Currently or been in a relationship where the following occur: No concerns reported Coding Level of Care Code Est Pt Level 4 (90809) Complex EM visit Add On G2211 Diagnoses Primary hypertension I10 Hypertension type: primary hypertension Chronic right-sided low back pain with right-sided sciatica M54.41; G89.29 Chronicity: chronic Piriformis syndrome of right side G57.01 Assessment & Plan Assessment & Plan (1) Hypertension: Code(s): I10 - Essential (primary) hypertension Category: Medical Qualifiers: Hypertension type: primary hypertension Qualified Code(s): I10 - Essential (primary) hypertension (2) Right-sided low back pain with right-sided sciatica: Code(s): M54.41 - Lumbago with sciatica, right side Category: Medical Qualifiers: Chronicity: chronic Qualified Code(s): M54.41 - Lumbago with sciatica, right side; G89.29 - Other chronic pain (3) Piriformis syndrome of right side: Code(s): G57.01 - Lesion of sciatic nerve, right lower limb Category: Medical Plan 84 year old female for follow up HTN-well controlled on current medications Right SI pain increased. referred to pain management Update labs-ordered Orders: Orders Lipid Panel Today E53.8 - Deficiency of other specified B group vitamins, E78.5 - Hyperlipidemia, unspecified, I10 - Essential (primary) hypertension, R53.83 - Other fatigue Vitamin B12 and Folate Today E53.8 - Deficiency of other specified B group vitamins, E78.5 - Hyperlipidemia, unspecified, I10 - Essential (primary) hypertension, R53.83 - Other fatigue Complete Blood Count Auto Diff Today E53.8 - Deficiency of other specified B group vitamins, E78.5 - Hyperlipidemia, unspecified, I10 - Essential (primary) hypertension, R53.83 - Other fatigue Comprehensive Met. Panel Today E53.8 - Deficiency of other specified B group vitamins, E78.5 - Hyperlipidemia, unspecified, I10 - Essential (primary) hypertension, R53.83 - Other fatigue Referrals Pain Management Referral M54.41 - Lumbago with sciatica, right side
[2025-03-15 09:10] VITALS: BP 114/56; PULSE 71; RESP 12; TEMP 36.7; O2SAT 96; BMI 22.7
--- OUTSIDE RECORDS SUMMARY | 2025-03-15 09:10 | XMS_ITS | Encounter Summary ---
Author Organization [facility] Address [address] [place] [address] Care Team Providers Care Performance Improvement Coordinator Name Role Phone Magdalena Ortiz MD Primary Care Provider Julia ramirez Encounter Details Date Type Department Care Team Description 05/20/2018 Armed Security Professional Report Medical Records [address] [place] [id number] Partha Birmingham MD Social History Tobacco Use Types Packs/Day Years Used Date Smoking Tobacco: Former Cigarettes Q uit: 11/06/1983 Smokeless Tobacco: Never Alcohol Use Standard Drinks/Week Comments Yes 0 (1 standard drink = 0.6 oz pur e alcohol) 5 glasses of wine per year Sex Assigned at Date Recorded Not on file documented as of this encounter Plan of Treatment Not on file documented as of this encounter Visit Diagnoses Not on filedocumented in this encounter Care Teams Performance Improvement Coordinator Relationship Specialty Start Date End Date Magdalena Ortiz MD PCP - General Internal Medicine 08/02/15 documented as of this encounter
== END 2025-03-15 09:44 | disposition home or self-care (01) ==
LOC: HO.HMCFM 08:51
PROVIDERS: PCP Internal Medicine; Visit Provider Internal Medicine
DX: I10 Essential (primary) hypertension (principal); M54.41 Lumbago with sciatica, right side; G89.29 Other chronic pain; G57.01 Lesion of sciatic nerve, right lower limb

== ENCOUNTER → 2025-03-15 08:50 | Outpatient (BNVA) | payer MEDICARE, OTHER, SELFPAY | PROVIDERS: PCP Internal Medicine; Visit Provider Internal Medicine | DX: I10 Essential (primary) hypertension (principal); M54.41 Lumbago with sciatica, right side; G89.29 Other chronic pain; G57.01 Lesion of sciatic nerve, right lower limb; Z79.899 Other long term (current) drug therapy; Z96.641 Presence of right artificial hip joint | CPT/HCPCS: 99212 ==

== ENCOUNTER 2025-03-15 09:57 | Outpatient (REF) | payer MEDICARE, OTHER, SELFPAY ==
[2025-03-15 11:35] LABS: MANUAL DIFF FLAG NO
[2025-03-15 11:42] LABS: Hematocrit 35.6 % (37.0-47.0); Hemoglobin 12.1 g/dl (12.0-16.0); Imm Gran Abs Auto 0.02 X10*3/uL (0.00-0.03); Imm Gran Pct Auto 0.3 % (0.0-0.4); Lymphocytes Absolute Auto 1.1 X10*3/uL (1.2-4.9); Mean Corpuscular HGB Conc 34.0 g/dl (31.0-35.0); Mean Corpuscular Hemoglobin 29.5 pg (27.0-33.0); Mean Corpuscular Volume 86.8 fL (80.0-98.0); NRBC Abs Auto 0.000 X10*3/uL (0.0-0.012); NRBC Pct Auto 0.0 /100WBC (0.0-0.2); Platelet Count 258 X10*3/uL (160-400); Red Blood Count 4.10 X10*6/uL (4.20-5.50); White Blood Count 6.6 X10*3/uL (4.8-10.8)
[2025-03-15 12:15] LABS: Alanine Aminotransferase 27 U/L (0-31); Albumin Level 4.5 g/dL (3.5-5.0); Alkaline Phosphatase 79 U/L (39-117); Anion Gap 13 (12-20); Aspartate Amino Transferase 50 U/L (5-31); Blood Urea Nitrogen 18 mg/dL (9-16); Calcium 9.4 mg/dL (8.4-10.2); Carbon Dioxide 28 mmol/L (22-29); Chloride 96 mmol/L (96-108); Cholesterol 219 mg/dL (<200); Estimated Glomerular Filt Rate > 60; HDL Cholesterol 62 mg/dL (>40); Potassium 3.6 mmol/L (3.3-5.1); Sodium 133 mmol/L (135-145); Total Protein 6.8 g/dL (6.5-8.0); Triglycerides 125 mg/dL (<150)
[2025-03-15 12:59] LABS: Folate 13.0 ng/mL (> or = 4.0); Vitamin B12 > 2000 pg/mL (200-900)
== END 2025-03-15 09:58 | disposition home or self-care (01) ==
LOC: HO.WFDLDS 09:57
PROVIDERS: Visit Provider Internal Medicine
DX: E53.8 Deficiency of other specified B group vitamins (principal); I10 Essential (primary) hypertension; Z00.00 Encounter for general adult medical examination without abnormal findings; Z13.220 Encounter for screening for lipoid disorders; R07.89 Other chest pain; R53.83 Other fatigue; E78.5 Hyperlipidemia, unspecified; D64.9 Anemia, unspecified
CPT/HCPCS: 36415; 80053; 80061; 82607; 82746; 85025

== ENCOUNTER 2025-04-02 11:24 | Outpatient (REF) | payer MEDICARE, OTHER, SELFPAY ==
--- NOTE | ~2025-04-02 | XR_ITS ---
EXAMINATION: XR HIP, RIGHT CLINICAL INFORMATION: M53.3 - Sacrococcygeal disorders, not elsewhere classified COMPARISON: None available. TECHNIQUE: AP and oblique views of the right hip. AP view pelvis. FINDINGS: There is a right hip arthroplasty prosthesis well-seated in the osseous acetabulum and osseous femur. There is a cortical disruption in the lesser trochanter of the right femur with a 2 mm gap within the fragments. No gross callus formation. Degenerative changes in the stents as well as and sacroiliac joints. Degenerative changes in the left hip Vascular calcifications, aorta and likely iliac arteries.. XR/XR hip RT w PEL1V IMPRESSION: Total right hip arthroplasty prosthesis, intact without malalignment. Probably old displaced traumatic deformity lesser trochanter right femur. Moderate osteoarthrosis/osteoarthritis, left hip. Electronically signed by: Vipul Soto MD 04/02/2025 12:56 PM EDT
--- NOTE | ~2025-04-02 | XR_ITS ---
EXAMINATION: XR SACROILIAC JOINTS CLINICAL INFORMATION: M53.3 - Sacrococcygeal disorders, not elsewhere classified COMPARISON: None available. TECHNIQUE: AP and oblique views of the sacroiliac joints FINDINGS: No acute cortical disruption. Sclerosis in the inferior aspect of the sacroiliac joints with mild vacuum phenomenon. Osteopenia versus osteoporosis. Vascular calcifications, aorta and likely iliac arteries. Right hip prosthesis no fully included in the [id number]. Degenerative changes in the symphysis pubis. Degenerative changes, left hip. XR/XR sacroiliac joint min 3V IMPRESSION: Mild sacroiliitis. Atherosclerosis disease. Degenerative changes in the left hip and symphysis pubis.. Electronically signed by: Vipul Soto MD 04/02/2025 12:57 PM EDT
== END 2025-04-02 11:25 | disposition home or self-care (01) ==
LOC: HO.XRAY 11:24
PROVIDERS: PCP Internal Medicine; Visit Provider Registered Nurse Emergency
DX: M53.3 Sacrococcygeal disorders, not elsewhere classified (principal); M25.551 Pain in right hip; Z79.899 Other long term (current) drug therapy
CPT/HCPCS: 72202; 73502; 99202

== ENCOUNTER 2025-04-02 11:24 | Outpatient (AMB) | payer MEDICARE, OTHER, SELFPAY ==
[2025-04-02 11:27] VITALS: BP 147/67; PULSE 88; RESP 16; O2SAT 98; BMI 21.9
--- NOTE | 2025-04-02 11:27 | A.OFFVIS_ITS ---
Vital Signs 04/02/25 11:27 Height 5 ft Weight 112 lb BMI 21.9 BP 147/67 H Blood Pressure Location Rt brachial Position Sitting Respiration 16 Pulse 88 Pulse Source Pulse Oximeter Pulse Oximetry (%) 98 Oxygen Delivery Method Room Air Intake Visit Reasons: Lumbago with sciatica, right side Grain Scooper Required: No Accompanied by: Self / Same As Patient Allergies sulfamethoxazole (From Bactrim) Allergy (Severe, Verified 04/02/25 11:32) Agitated trimethoprim (From Bactrim) Allergy (Severe, Verified 04/02/25 11:32) Agitated HPI Comments Details: The patient is an 85-year-old female presenting with lower back pain. She has a history of a shattered femur, which required surgical intervention, followed by a hip replacement two years ago. Prior to these surgeries, she was undergoing pain management for sciatica and piriformis syndrome. The patient reports that her sacroiliac pain began after a long drive, which exacerbated the discomfort. She describes the pain as localized to the right side, with occasional numbness and tenderness upon palpation. Endorses radiation of the pain posterior down the side of the knee with occasional radiation around to the groin. Physical therapy and injections have been part of her previous management strategies, with varying degrees of relief. She continues with home exercise program, daily stretching and water aerobics but pain persists. Pain is exacerbated by sitting for extended period of time, standing for extended period of time, going up and downstairs. Her medical history is significant for osteoarthritis, scoliosis, and spinal stenosis, which contribute to her chronic pain. She maintains an active lifestyle, engaging in daily gym activities and water aerobics, which she finds beneficial. The patient is cautious about medication use, preferring non- pharmacological interventions when possible. Minimal improvement with NSAIDs, Tylenol and lidocaine patches. - Onset: Pain began after a long drive. - Quality: Described as localized and tender upon palpation. - Location: Right sacroiliac region. - Radiation: Occasional numbness extending from the sacroiliac region. - Exacerbating factors: Prolonged sitting and certain physical activities. - Relieving factors: Physical therapy and water aerobics. - Affect: Pain impacts daily activities but patient maintains a positive outlook. - Analgesia: Uses lidocaine patches and prefers non-pharmacological methods. - Adverse Effects: None reported from current pain management strategies. - Activities of Daily Living: Engages in gym activities and water aerobics regularly. - Aberrant Drug Related Behaviors: None reported. [facility] Medical History Broken arm Right femoral fracture Greater trochanteric bursitis of right hip Vitamin B12 deficiency Tubular adenoma of colon Sciatica Piriformis syndrome of right side Allergic rhinitis Hypertension Surgical History History of appendectomy History of total hip replacement Family History Mother CHF (congestive heart failure) Cancer of ovary Coronary artery disease Father Cancer of bladder Brother Heart attack Multiple myeloma Diabetes Lupus Pancreatic cancer Sister Heart attack Multiple myeloma Diabetes Lupus Pancreatic cancer Social History Household Members: Spouse Housing: Apartment Are you a primary day care center director to a significant other at home: No Do you presently have visiting nurse or other home services: No 75 years or older and lives alone: No Alcohol intake: current Alcohol intake frequency: holidays/special occasions only Alcohol type: wine Patient Tobacco Use Status: Former Tobacco user e-Cigarette/Vaping Use: Never Used service: No Current occupational status: retired Current occupational exposures/hazards: No Cognitive needs: No Hearing needs: No Vision needs: No Review of Systems Const Details: - Musculoskeletal: Reports pain in the right sacroiliac region, denies pain in other joints. - Neurological: Reports occasional numbness in the sacroiliac region, denies other neurological symptoms. Physical Exam Exam Exam: General: awake, alert, oriented. Answers questions appropriately. Fully engaged in examination. Skin: warm, dry, intact HEENT: Normocephalic. Hearing intact. Cardiac: External chest normal in appearance. Respiratory: No cough, audible wheezing or stridor. Abdomen: without gross distension. MS: No obvious swelling or deformities. Able to transition from sit to stand unassisted. Ambulates with bilaterally normal heel strike and toe off Nontender over midline lumbar vertebrae and lumbar paraspinal muscles SLR negative bilaterally Bilateral lower extremity strength 5/5 Right SIJ: Positive thigh thrust, positive Ga[place], positive SI compression. Tenderness over right PSIS. Neurological: Oriented to person, place, time and situation. Thought process intact. No gait abnormalities appreciated. Psychiatric: Appropriate mood and affect. Good judgment and insight. Vital Signs: Last Vital Signs Pulse 88 04/02/25 11:27 Resp 16 04/02/25 11:27 BP 147/67 H 04/02/25 11:27 Pulse Ox 98 04/02/25 11:27 Oxygen Delivery Method Room Air 04/02/25 11:27 BMI result Body Mass Index 21.9 Assessment & Plan Assessment & Plan (1) Sacroiliac joint dysfunction of right side: Code(s): M53.3 - Sacrococcygeal disorders, not elsewhere classified Category: Medical Plan An x-ray of the hip and pelvis will be ordered to assess for any underlying issues contributing to the sacroiliac joint pain. The patient will undergo a diagnostic injection in the sacroiliac joint under x-ray guidance to confirm the source of pain. If the diagnostic injection provides relief, a subsequent steroid injection may be considered for longer-term pain management. The patient is advised to continue with her current exercise regimen, including water aerobics and stretching, as these activities have been beneficial. She is encouraged to use lidocaine patches as needed for pain relief and to avoid activities that exacerbate her symptoms. Justification for interventional therapy: ? Patient with average pain > 6/10 ? Patient has exhausted conservative therapy, physical therapy, NSAIDs The risks, consequences, alternatives, and benefits of various treatment options were discussed with the patient in great detail, including conservative management, injections and procedures. will schedule for fluoroscopy guided diagnostic right sacroiliac joint injection with local anesthetic. Patient was informed and verbally consented to the use of an ambient scribe for clinic note documentation during this visit. Orders: Orders XR sacroiliac joint min 3V Today M53.3 - Sacrococcygeal disorders, not elsewhere classified XR hip RT w PEL1V Today M25.551 - Pain in right hip, M53.3 - Sacrococcygeal disorders, not elsewhere classified Patient Instructions: - Schedule and complete the x-ray of the hip and pelvis as soon as possible. - Continue with water aerobics and stretching exercises regularly. - Use lidocaine patches for pain relief as needed. - Avoid activities that worsen the pain. - Follow up for the diagnostic injection appointment once scheduled. Coding Level of Care Code New Pt Level 4 (65979) Complex EM visit Add On G2211 Diagnoses Sacroiliac joint dysfunction of right side M53.3
--- OUTSIDE RECORDS SUMMARY | 2025-04-02 11:28 | XMS_ITS | Encounter Summary ---
Author Organization [facility] Address [address] [place] [address] Care Team Providers Care Travel Trailer Components Assembler Name Role Phone Magdalena Ortiz MD Primary Care Provider Julia ramirez Encounter Details Date Type Department Care Team Description 05/20/2018 Appeals Analyst Report Medical Records [address] [place] [id number] Partha Birmingham MD Social History Tobacco Use [...] on filedocumented in this encounter Care Teams Travel Trailer Components Assembler Relationship Specialty Start Date End Date Magdalena Ortiz MD PCP - General Internal Medicine 08/02/15 documented as of this encounter
== END 2025-04-02 12:03 | disposition home or self-care (01) ==
LOC: HO.PMC 11:24
PROVIDERS: PCP Internal Medicine; Visit Provider Registered Nurse Emergency
DX: M53.3 Sacrococcygeal disorders, not elsewhere classified (principal)
CPT/HCPCS: 99204; G2211

== ENCOUNTER → 2025-04-02 12:12 | Outpatient (BNV) | payer MEDICARE, OTHER, SELFPAY | PROVIDERS: PCP Internal Medicine; Visit Provider Radiology Diagnostic Radiology | DX: M46.1 Sacroiliitis, not elsewhere classified (principal); Z96.641 Presence of right artificial hip joint | CPT/HCPCS: 72202; 73502 ==